=== PATIENT | male | born 1990 | race African-American/Black ===

== ENCOUNTER 2022-02-12 09:23 | Emergency (ER) | payer MEDICAID, OTHER ==
[~2022-02-12] VITALS: Ht 182.9 cm; Wt 73.0 kg
[2022-02-12] MEDS ORDERED: IBUPROFEN 400MG TABLET PO ONE (10:00)
[2022-02-12 11:14] VITALS: BP 138/62
== END 2022-02-12 11:15 | disposition home or self-care (01) ==
LOC: ER 09:23
DX: S21.132A Puncture wound without foreign body of left front wall of thorax without penetration into thoracic cavity, initial encounter (principal); X99.9XXA Assault by unspecified sharp object, initial encounter; Y93.89 Activity, other specified; Y92.89 Other specified places as the place of occurrence of the external cause
CPT/HCPCS: 71046; 99283